=== PATIENT | male | born 1995 | race Caucasian/White ===

== ENCOUNTER 2022-11-06 18:48 | Emergency (ER) | payer OTHER, SELFPAY ==
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
[2022-11-06 19:05] VITALS: BP 139/95; PULSE 104; RESP 14; TEMP 36.8; O2SAT 100
[2022-11-06 19:06] VITALS: BP 139/95; PULSE 104; RESP 14; TEMP 36.8; O2SAT 100
== END 2022-11-06 19:23 | disposition home or self-care (01) ==
PROVIDERS: Emergency Provider Nurse Practitioner Family; PCP Family Medicine
DX: S40.022A Contusion of left upper arm, initial encounter (principal); S16.1XXA Strain of muscle, fascia and tendon at neck level, initial encounter; V49.40XA Driver injured in collision with unspecified motor vehicles in traffic accident, initial encounter
CPT/HCPCS: 99213; G0463